=== PATIENT | female | born 1965 | race American Indian/Alaskan Native ===

== ENCOUNTER 2018-09-26 08:49 | Emergency (ER) | payer OTHER ==
[2018-09-26] MEDS ORDERED: PERCOCET 5/325 PO ONE (09:10)
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
[2018-09-26 09:17] VITALS: BP 127/65
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
== END 2018-09-26 10:56 | disposition home or self-care (01) ==
LOC: ED 08:49
DX: M54.2 Cervicalgia (principal); R07.89 Other chest pain; R51 Headache; I10 Essential (primary) hypertension; F17.200 Nicotine dependence, unspecified, uncomplicated; F12.90 Cannabis use, unspecified, uncomplicated; V89.2XXA Person injured in unspecified motor-vehicle accident, traffic, initial encounter; Y93.89 Activity, other specified; Y92.488 Other paved roadways as the place of occurrence of the external cause; Y99.8 Other external cause status
CPT/HCPCS: 70450; 71046; 72125; 93005; 93010; 99284

== ENCOUNTER 2018-12-20 15:31 | Emergency (ER) | payer OTHER ==
--- NOTE | 2018-12-20 15:52 | Emergency Department Report ---
Blank Doc - Documentation Documentation: This is a 53-year-old female that presents with hematuria. This initial assessment/diagnostic orders/clinical plan/treatment(s) is/are subject to change based on patient's health status, clinical progression and re- assessment by fellow clinical providers in the ED. Further treatment and workup at subsequent clinical providers discretion. Patient/guardians urged not to elope from the ED as their condition may be serious if not clinically assessed and managed. Initial orders include: 1- Patient sent to [facility] for further evaluation and treatment 2- UA
[2018-12-20 16:10] LABS: Bilirubin,Urine NEG (Negative); Blood,Urine SM (Negative); Color,Urine Amber (Yellow); Protein,Urine <15 mg/dL mg/dL (Negative)
--- NOTE | 2018-12-20 19:44 | Emergency Department Report ---
ED Female HPI - General Chief complaint: Urogenital-Female Stated complaint: HEAVY BLOOD IN URINE Time Seen by Provider: 12/20/18 15:51 Source: patient Mode of arrival: Ambulatory Limitations: No Limitations - History of Present Illness Initial comments: 53-year-old female with a past medical history of hypertension presents to the Hospital complaining of one and urine today. Patient was scheduled to have a colonoscopy today. She took Azo which she believed was a prep for colonoscopy. She denies dysuria, back pain, bladder, vomiting, or fever. - Related Data Previous Rx's Medication Instructions Recorded Last Taken Type Cyclobenzaprine [Flexeril] 10 mg PO TID PRN #12 tablet 09/26/18 Unknown Rx Ibuprofen [Motrin 800 MG tab] 800 mg PO Q8HR PRN #20 tablet 09/26/18 Unknown Rx Fluconazole [Diflucan TAB] 150 mg PO ONCE #1 tablet 12/20/18 Unknown Rx Sulfamethoxazole/Trimethoprim 1 each PO BID #6 tablet 12/20/18 Unknown Rx [Bactrim DS TAB] Allergies Allergy/AdvReac Type Severity Reaction Status Date / Time No Known Allergies Allergy Unverified 09/26/18 08:55 ED Review of Systems ROS: Stated complaint: HEAVY BLOOD IN URINE Other details as noted in HPI Comment: All other systems reviewed and negative ED Past Medical Hx - Past Medical History Previous Medical History?: Yes Hx Hypertension: Yes - Surgical History Past Surgical History?: No - Social History Smoking Status: Current Every Day Smoker Substance Use Type: None - Medications Home Medications: Home Medications Medication Instructions Recorded Confirmed Last Taken Type Cyclobenzaprine [Flexeril] 10 mg PO TID PRN #12 tablet 09/26/18 Unknown Rx Ibuprofen [Motrin 800 MG tab] 800 mg PO Q8HR PRN #20 tablet 09/26/18 Unknown Rx Fluconazole [Diflucan TAB] 150 mg PO ONCE #1 tablet 12/20/18 Unknown Rx Sulfamethoxazole/Trimethoprim 1 each PO BID #6 tablet 12/20/18 Unknown Rx [Bactrim DS TAB] ED Physical Exam - General Limitations: No Limitations - Other Other exam information: General: No acute distress Head: Atraumatic normocephalic Eyes: Normal appearance, pupils equal reactive to light, extraocular movements intact ENT: Normal oropharynx Neck: Normal appearance, no C-spine tenderness, no meningismus Chest: Clear to auscultation bilaterally, no wheezes, rales, or crackles Cardiovascular: Regular rate and rhythm Abdomen: Soft, nondistended, nontender, no rebound or guarding, normal bowel sounds Back: Normal inspection, nontender no CVA tenderness Extremity: Normal inspection, no deformity, full range of motion Neuro: Alert and oriented 3, speech clear, no gross motor or sensory deficit Psychiatric: Normal affect Skin: No rash, warmth, or erythema ED Course Vital Signs 12/20/18 15:52 Temperature 98.4 F Pulse Rate 78 Respiratory 18 Rate Blood Pressure 127/88 O2 Sat by Pulse 100 Oximetry ED Medical Decision Making - Medical Decision Making Patient has not had any urinary symptoms. When she elected secondary to a 0. Patient does however, have nitrites without elevated WBC count therefore we will cover with Bactrim 3 days. - Differential Diagnosis UTI, medication reaction Critical Care Time: No Critical care attestation.: If time is entered above; I have spent that time in minutes in the direct care of this critically ill patient, excluding procedure time. ED Disposition Clinical Impression: Urine discoloration, Medication reaction Disposition: DC-01 TO HOME OR SELFCARE Is pt being admited?: No Does the pt Need Aspirin: No Condition: Stable Instructions: Urinary Tract Infection in Women (ED) Additional Instructions: Your urine is likely orange secondary to the Azo which is known side effect of this medication. You have been provided a prescription for antibiotics since she'll urine results contain nitrites which is seen with infection. Follow-up with your doctor or with a doctor provided. Return if symptoms worsen as indicated by your discharge instructions. Prescriptions: Sulfamethoxazole/Trimethoprim [Bactrim DS TAB] 1 each PO BID #6 tablet Fluconazole [Diflucan TAB] 150 mg PO ONCE #1 tablet Referrals: OMARI AVINA MD [Primary Care Provider] - 3-5 Days Time of Disposition: 19:44
[2018-12-20 20:02] VITALS: BP 124/82
== END 2018-12-20 19:49 | disposition home or self-care (01) ==
LOC: ED 15:31
DX: R31.9 Hematuria, unspecified (principal); I10 Essential (primary) hypertension; F17.200 Nicotine dependence, unspecified, uncomplicated
CPT/HCPCS: 81001

== ENCOUNTER 2020-10-24 07:21 | Emergency (ER) | payer SELFPAY | END 2020-10-24 07:30 | disposition left against medical advice (07) | LOC: ED 07:21 ==